=== PATIENT | female | born 1985 | race Caucasian/White ===

== ENCOUNTER 2023-06-26 20:13 | Emergency (ER) | payer MEDICARE, MEDICAID ==
[~2023-06-26] VITALS: Ht 167.6 cm; Wt 92.3 kg
[2023-06-26 20:20] VITALS: TEMP 98.5
[2023-06-26 22:46] VITALS: BP 121/81; PULSE 102
== END 2023-06-26 22:46 | disposition home or self-care (01) ==
LOC: COL.ER 20:13
DX: K59.00 Constipation, unspecified (principal)